=== PATIENT | female | born 1980 ===

== ENCOUNTER → 2018-03-08 | Outpatient (CLI) | payer MEDICAID | LOC: FIMAGING 10:39 | PROVIDERS: ATTEND Family Medicine | DX: M22.42 Chondromalacia patellae, left knee (principal); M25.361 Other instability, right knee; S89.91XD Unspecified injury of right lower leg, subsequent encounter; S89.92XD Unspecified injury of left lower leg, subsequent encounter; Y93.9 Activity, unspecified ==